=== PATIENT | male | born 1960 | race Caucasian/White ===

== ENCOUNTER → 2018-04-25 10:58 | Outpatient (CLI) | payer OTHER, SELFPAY ==
[2018-04-25 12:57] LABS: Anion Gap 6 (5-15); BUN 20 mg/dL (7-18); BUN/Creat Ratio 17.5 RATIO (10-20); Calcium,Total 8.9 mg/dL (8.5-10.1); Chloride 107 mmol/L (98-107); Creatinine, Serum 1.14 mg/dL (0.70-1.30); EST Glomerular Filtration Rate 70 mL/min (>60); Est Glom Filt Rate - Afr Amer 85 mL/min (>60); Glucose 118 mg/dL (74-106); PSA,Total - Annual Screen 0.37 ng/mL (0.00-4.00); Potassium 4.3 mmol/L (3.5-5.1); Sodium Level 139 mmol/L (136-145)
== END ==
PROVIDERS: Family Provider Family Medicine; PCP Family Medicine; Visit Provider Family Medicine
DX: I10 Essential (primary) hypertension (principal); Z12.5 Encounter for screening for malignant neoplasm of prostate
CPT/HCPCS: 36415; 80048; 84153; G0103

== ENCOUNTER → 2018-07-04 11:02 | Outpatient (CLI) | payer OTHER, SELFPAY ==
--- NOTE | 2018-07-04 12:07 | STRESSREP ---
Stress Test Report Treadmill EKG: Resting EKG: Normal sinus rhythm, normal axis, normal intervals, no evidence of previous myocardial infarction. Treadmill EKG: The patient exercise according to Soule[place]ane protocol for 9 minutes and 0 seconds achieving a maximum workload of 10.10 M ETS. Resting heart rate was initially 60 beats a minute and moe to maximum 157 bpm which represents 96% of the maximal age-predicted heart rate. Resting blood pressure was 130/84 and moe to maximum of 160/90. Test was terminated due to target heart rate achievement and dyspnea. During exercise the patient's heart rate increased as expected. Approximately 5 minutes 50 seconds into exercise patient developed [address] segment depression along the inferior and lateral leads. Patient had rare PVCs noted during exercise. Patient had a maximum of 1.5-[address] segment depression at peak exercise which resolved by 2 minutes and 1 second into recovery. No anginal symptoms noted. Conclusions abnormal adequate treadmill EKG. Positive for ischemia by EKG criteria. No anginal symptoms noted. Rare PVCs noted. Average exercise capacity for age. Appropriate blood pressure response to exercise. Test terminated due to dyspnea. Recommend clinical correlation or alternative mode of testing with imaging if clinically indicated. No complications.
--- NOTE | 2018-07-04 12:10 | STRESSREP_ITS ---
Stress Test Report Treadmill EKG: Resting EKG: Normal sinus rhythm, normal axis, normal intervals, no evidence of previous myocardial infarction. Treadmill EKG: The patient exercise according to Soule[place]ane protocol for 9 minutes and 0 seconds achieving a maximum workload of 10.10 M ETS. Resting heart rate was initially 60 beats a minute and moe to maximum 157 bpm which represents 96 % of the maximal age-predicted heart rate. Resting blood pressure was 130/84 and moe to maximum of 160/90. Test was terminated due to target heart rate achievement and dyspnea. During exercise the patient's heart rate increased as expected. Approximately 5 minutes 50 seconds into exercise patient developed [address] segment depression along the inferior and lateral leads. Patient had rare PVCs noted during exercise. Patient had a maximum of 1.5-[address] segment depression at peak exercise which resolved by 2 minutes and 1 second into recovery. No anginal symptoms noted. Conclusions abnormal adequate treadmill EKG. Positive for ischemia by EKG criteria. No anginal symptoms noted. Rare PVCs noted. Average exercise capacity for age. Appropriate blood pressure response to exercise. Test terminated due to dyspnea. Recommend clinical correlation or alternative mode of testing with imaging if clinically indicated. No complications.
== END ==
PROVIDERS: Family Provider Family Medicine; PCP Family Medicine; Visit Provider Family Medicine
DX: I10 Essential (primary) hypertension (principal)
CPT/HCPCS: 93017

== ENCOUNTER → 2018-07-09 16:18 | Outpatient (CLI) | payer OTHER, SELFPAY ==
--- NOTE | 2018-07-09 16:32 | RAD_ITS ---
STUDY: X-RAY CHEST REASON FOR EXAM: Male, 57 years old. Chest pain after abnormal stress chest TECHNIQUE: PA and lateral views of the chest. COMPARISON: None. FINDINGS: The lungs are clear and expanded. There is no demonstrated pleural abnormality. Normal size heart. Normal mediastinum and john. Normal visualized pulmonary arteries. Normal visualized aortic arch and descending thoracic aorta. Normal visualized thoracic spine. Normal visualized ribs, clavicles, and shoulders. There is no demonstrated abnormality of the visualized soft tissue structures of the upper abdomen. RAD/Chest PA and Lateral IMPRESSION: Normal x-ray examination of the chest. Electronically Signed: Holland Moore MD at 14:34 EDT , Service support ,
[2018-07-09 17:12] LABS: Absolute Neutrophil Count 7.1 X10^3/uL (2.0-7.7); Basophil# 0.03 X10^3/uL; Basophil% 0.3 % (0-1); Eosinophil# 0.09 X10^3/uL; Eosinophils% 0.9 % (0-5); Hematocrit 43.8 % (40-54); Hemoglobin 15.2 g/dl (13.0-16.5); Lymphocyte % 18.3 % (19-41); Mean Corp Hgb Conc 34.7 g/gl (32-36); Mean Corpuscular Hgb 29.7 pg (27.0-32.0); Mean Corpuscular Volume 85.7 fL (80-94); Mean Platelet Vol. 10.5 fl (6.2-12.0); Monocyte# 0.79 X10^3/uL; Neutrophil % 72.3 % (47-70); Platelet Count 199 K/mm3 (150-450); RBC Distribution Width CV 13.5 % (11.6-14.6); RBC Distribution Width SD 41.8 fl (35.1-43.9); Red Blood Count 5.11 M/mm3 (4.6-6.2); White Blood Count 9.8 K/mm3 (4.4-11.0)
[2018-07-09 17:13] LABS: Prothrombin Time (Protime)PT. 12.9 SECONDS (11.7-14.9)
[2018-07-09 17:46] LABS: POSITIVE COUNT NO; POSITIVE DIFFERENTIAL NO; POSITIVE MORPHOLOGY NO
[2018-07-09 17:48] LABS: Anion Gap 9 (5-15); BUN 19 mg/dL (7-18); BUN/Creat Ratio 18.3 RATIO (10-20); Calcium,Total 9.1 mg/dL (8.5-10.1); Chloride 105 mmol/L (98-107); Creatinine, Serum 1.04 mg/dL (0.70-1.30); EST Glomerular Filtration Rate 78 mL/min (>60); Est Glom Filt Rate - Afr Amer 94 mL/min (>60); Glucose 93 mg/dL (74-106); Potassium 4.1 mmol/L (3.5-5.1); Sodium Level 143 mmol/L (136-145)
== END ==
PROVIDERS: Family Provider Family Medicine; PCP Family Medicine; Visit Provider Internal Medicine Cardiovascular Disease
DX: R06.09 Other forms of dyspnea (principal); I10 Essential (primary) hypertension; R94.39 Abnormal result of other cardiovascular function study
CPT/HCPCS: 36415; 71046; 80048; 85025; 85610

== ENCOUNTER → 2018-07-18 10:42 | Outpatient (CLI) | payer OTHER, SELFPAY ==
--- NOTE | 2018-07-18 10:52 | ECHOCS_ITS ---
Reason For Study: Chest Pain Procedure This was a 2D Doppler, Color Flow transthoracic echocardiogram. Contrast injection was performed. Exam performed in department. Left Ventricle Normal size and thickness. The estimated ejection fraction is 65 %. Normal diastology for age. Septal motion consistent with IVCD. No regional wall motion abnormalities noted. Right Ventricle Normal size and thickness. Normal systolic function. Atria The left atrium is mildly enlarged. The right atrium is mildly enlarged. Normal atrial septum. Mitral Valve The mitral valve is structurally normal. No prolapse or stenosis seen. Tricuspid Valve Normal tricuspid valve. Trivial tricuspid valve insufficiency. Right ventricular systolic pressure estimated to be 26 mmHg. Aortic Valve Normal aortic valve. Trisinus/trileaflet aortic valve. Pulmonic Valve Normal pulmonic valve. Trivial pulmonic valve insufficiency. Great Vessels Normal aortic root. Normal arch. Normal inferior vena cava. Inferior vena cava collapse with sniff. Pericardium/Pleural No pericardial effusion. Medication 22 gauge I.V. with prn adaptor inserted into right arm. Diluted definity 3ml given slow IV push to enhance endocardial definition. MMode/2D Measurements & Calculations LVIDd: 5.0 cm IVSd: 1.1 cm Ao root diam: 4.0 cm LVIDs: 3.5 cm LVPWd: 1.4 cm RVDd: 3.9 cm FS: 29.9 % LAV(MOD-bp): 83.6 ml LVAd ap4: 38.0 cm2 SV(MOD-sp4): 82.4 ml LAV(MOD-bp) Indexed: 38.5 ml/m2 EDV(MOD-sp4): 133.1 ml LAV(MOD-sp2): 78.1 ml EDV(sp4-el): 133.2 ml LAV(MOD-sp4): 85.8 ml LVAs ap4: 20.2 cm2 ESV(MOD-sp4): 50.7 ml ESV(sp4-el): 50.6 ml EF(MOD-sp4): 61.9 % EF(sp4-el): 62.0 % SV(sp4-el): 82.6 ml LA A4 area: 25.0 cm2 RA A4 area: 21.5 cm2 Time Measurements MV dec time: 0.19 sec Doppler Measurements & Calculations MV E max cayetano: 72.9 cm/sec Lat Peak E' Cayetano: 11.0 cm/sec Med Peak E' Cayetano: 11.9 cm/sec MV A max cayetano: 52.1 cm/sec E/E' lat: 6.6 E/E' med: 6.1 MV E/A: 1.4 MV V2 max: 83.5 cm/sec MV P1/2t max cayetano: 85.4 cm/sec Ao V2 max: 136.8 cm/sec MV max P.8 mmHg MV P1/2t: 52.9 msec Ao max P.5 mmHg MV V2 mean: 40.6 cm/sec MV dec slope: 473.1 cm/sec2 Ao V2 mean: 88.6 cm/sec MV mean P.81 mmHg MVA(P1/2t): 4.2 cm2 Ao mean P.6 mmHg MV V2 VTI: 20.7 cm Ao V2 VTI: 26.1 cm LV V1 max: 110.0 cm/sec PA V2 max: 96.3 cm/sec TR max cayetano: 226.6 cm/sec LV V1 max P.8 mmHg TR max P.5 mmHg LV V1 mean P.2 mmHg LV V1 mean: 68.3 cm/sec LV V1 VTI: 24.2 cm Interpretation Summary The estimated ejection fraction is 65 %. Normal diastology for age. The left atrium is mildly enlarged. Trivial tricuspid valve insufficiency. Right ventricular systolic pressure estimated to be 26 mmHg. The study was technically difficult. There is no comparison study available. Contrast injection was performed. Ordering Physician: Tulio Garcia Referring Physician: Jos Uriostegui Performed By: Keaton Flowers RCS
== END ==
PROVIDERS: Family Provider Family Medicine; PCP Family Medicine; Referring Provider Internal Medicine Cardiovascular Disease; Visit Provider Internal Medicine Cardiovascular Disease
DX: R07.9 Chest pain, unspecified (principal); R06.09 Other forms of dyspnea; R94.39 Abnormal result of other cardiovascular function study
CPT/HCPCS: 93306; Q9957; A4216; C8929

== ENCOUNTER 2018-07-19 06:56 | Day surgery (SDC) | payer OTHER, SELFPAY ==
--- NOTE | 2018-07-19 09:15 | CL.D_ITS ---
Patient Name: TAMMY MAYO Study Date: 07/19/2018 Performing: Tulio Garcia MD Ht: inches cm : 1960 Wt: 246.92 lbs 112 kg Age: 57 Gender: male BSA: PROCEDURE(S) PERFORMED PR22-VLX/COR/LV CLINICAL PROFILE AND INDICATIONS Indications: Suspected CAD Heart Failure: None Stress/Imaging Standard Exercise Stress Test: Yes Result: Positive Low Risk Angina Classification Anginal Classification w/in 2 Weeks: CCS III CAD Presentations: Unstable angina. 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 RECOMMENDATIONS CTA of coronary arteries to assess anomalous origin of left main coronary artery. Manual sheath removal D/c plavix, cont baby asa. Pt's chest pain has resolved with anti-anxiety meds. DESCRIPTION OF PROCEDURE The patient arrived to the procedure lab. The risks and benefits of the procedure as well as a full d escription of our services here and current unavailability of surgical backup were fully explained to the patient and/or their significant other prior to the catheterization. The Timeout was completed, verifying the correct patient and procedure. The patient's procedural site was prepped and draped in the usual fashion. Local anesthetic was given subcutaneously to right groin region with Lidocaine 2%. Using a modified Seldinger technique, arterial access was obtained via the right femoral artery, a 4 Fr sheath was inserted Right Coronary Artery selective angiography was then performed in multiple vi ews using a 4 Fr. 3DRC catheter. Left Coronary Artery selective angiography was performed in multiple views using a 4 Fr. JL6 catheter. Left Ventriculography was performed in BROOKE projection using a 4 Fr . Pigtail catheter. LV to AO pullback pressures were then recorded.The arterial sheath was pulled and manual compression applied until hemostasis is achieved. 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, possibly traversing b/w pulmonary artery and aorta., Angiographically normal LEFT ANTERIOR DECENDING ARTERY: Angiographically normal CIRCUMFLEX ARTERY: Angiographically normal RIGHT CORONARY ARTERY: Angiographically normal RT PDA: Proximal - Angiographically normal COMPLICATIONS No Complications PROCEDURE MEDICATIONS Versed 1 mg IV Oxygen: 2 L/min via nasal cannula SUMMARY OF HEMODYNAMIC DATA Time AIR REST ECG 07:14:22 AO 138/75 (102) SA 08:42:53 LV 180/-26, 13 08:58:14 LV 169/-27, 16 08:58:20 LVp 164/-24, 10 08:58:29 AOp 163/81 (116) 08:58:34 Signed By Tulio Garcia MD On 07/19/2018 09:15:09 Tulio Garcia MD
--- NOTE | 2018-08-30 14:50 | PCM.HP.BLA ---
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 Garcia @ [facility] (4) Congenital heart anomaly Status: Chronic (5) Hypertension Status: Chronic History and Physical Date of Admission: 07/19/18 Mr. Cam is a very pleasant 58-year-old gentleman who presented with new onset substernal chest pain which originally thought to be anxiety and he was prescribed antianxiety medication. When this did not improve his chest pain he underwent a stress test which was abnormal for ischemia. 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 Patient was then referred for a CT scan of his great vessels to determine if he requires translocation of his left main or bypass surgery. The risks/benefits of the procedure were thoroughly explained to the patient with specific attention to lack of on-site surgical backup, and he agreed to proceed. Physical exam demonstrated clear lungs bilaterally, regular rate and rhythm, normal S1/S2, no S3 or S4. He had no murmurs. He had no edema. EKG showed normal sinus rhythm, no previous myocardial infarction, no acute changes. Assessment/plan: 1. 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 The patient will be referred for a CT scan of his chest with IV contrast dye to evaluate his coronary anatomy and determine whether he requires translocation of his left main from the right coronary cusp to the left coronary cusp or bypass surgery. If so, patient referred to [facility] for surgical correction of same. All questions answered. Code Visit Office Visits / Consults: [id number] OV L3 Est
--- NOTE | 2018-08-30 14:54 | HP.PCM_ITS ---
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 Garcia @ [facility] (4) Congenital heart anomaly Status: Chronic (5) Hypertension Status: Chronic History and Physical Date of Admission: 07/19/18 Mr. Cam is a very pleasant 58-year-old gentleman who presented with new onset substernal chest pain which originally thought to be anxiety and he was prescribed antianxiety medication. When this did not improve his chest pain he underwent a stress test which was abnormal for ischemia. 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 Patient was then referred for a CT scan of his great vessels to determine if he requires translocation of his left main or bypass surgery. The risks/benefits of the procedure were thoroughly explained to the patient with specific attention to lack of on-site surgical backup, and he agreed to proceed. Physical exam demonstrated clear lungs bilaterally, regular rate and rhythm, normal S1/S2, no S3 or S4. He had no murmurs. He had no edema. EKG showed normal sinus rhythm, no previous myocardial infarction, no acute changes. Assessment/plan: 1. 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 The patient will be referred for a CT scan of his chest with IV contrast dye to evaluate his coronary anatomy and determine whether he requires translocation of his left main from the right coronary cusp to the left coronary cusp or bypass surgery. If so, patient referred to [facility] for surgical correction of same. All questions answered. Code Visit Office Visits / Consults: [id number] OV L3 Est
== END 2018-07-19 13:37 | disposition home or self-care (01) ==
LOC: CLSP 06:57
PROVIDERS: Family Provider Family Medicine; PCP Family Medicine; Referring Provider Internal Medicine Cardiovascular Disease; Visit Provider Internal Medicine Cardiovascular Disease
DX: I20.0 Unstable angina (principal); R06.09 Other forms of dyspnea; Q24.9 Congenital malformation of heart, unspecified; Q24.5 Malformation of coronary vessels; I10 Essential (primary) hypertension; R94.39 Abnormal result of other cardiovascular function study; Z79.02 Long term (current) use of antithrombotics/antiplatelets; Z79.82 Long term (current) use of aspirin; Z79.899 Other long term (current) drug therapy
CPT/HCPCS: 93458; 99152; 99153; J7040; C1769; C1894; Q9967

== ENCOUNTER → 2018-08-05 14:35 | Outpatient (CLI) | payer OTHER, SELFPAY ==
--- NOTE | 2018-08-05 14:43 | CT_ITS ---
STUDY: CT CHEST WITHOUT CONTRAST REASON FOR EXAM: Male, 58 years old. 2 month history of chest pain. Coronary artery assessment. This is a normal report in the lungs. RADIATION DOSAGE (If Supplied By Facility): CTDIvol = ( 22.77 ) mGy, DLP = ( 2279.70 ) mGycm TECHNIQUE: Transaxial imaging was performed without the administration of intravenous contrast material. Individualized dose optimization techniques were used for this CT. COMPARISON: None. FINDINGS: The lungs are normal. There is no demonstrated pleural abnormality. Normal heart and pericardium. There are multiple small lymph nodes within the mediastinum, which are normal in size and morphology most compatible with reactive lymph hyperplasia. Normal hilar regions. Normal unenhanced pulmonary arteries. There is atherosclerotic calcification of the aortic arch with tortuosity and elongation of the aortic arch and descending thoracic aorta. There are multi-level degenerative changes of the thoracic spine. There is no demonstrated abnormality of the visualized upper abdomen. CT/Limited Chest CT w/CCTA IMPRESSION: No acute abnormality is seen. Electronically Signed: Harvinder Abreu MD at 15:47 EDT Tel [phone], Service support ,
[2018-08-05 14:53] VITALS: BP 138/84; PULSE 56; RESP 16; O2SAT 100; BMI 29.2
--- NOTE | 2018-08-14 10:17 | CA.SCORE ---
Calcium Scoring Date of Study:: 08/05/18 Coronary Calcium Scoring: Coronary calcium score of 0% Conclusion: High-resolution computed tomography was performed on 08/05/18 with particular attention paid to the coronary arteries. Patient has a calcium score of 0%. 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 There were no significant lesions or stenoses seen in the coronary arteries. The left main, LAD, left circumflex and right coronary artery vessels were imaged and appear to have no significant stenosis and 0% calcium. There was motion artifact noted during image acquisition. No complications. Impression: Impressions: 1. Coronary calcium score Agatson score of 0% 2. 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 3. No evidence of significant coronary artery disease seen by coronary CTA. 4. Significant motion artifact seen in the midportion of the right coronary artery. 5. Patient appeared to have adequate IV contrast deposition in the ascending aorta and coronary arteries. 6. No complications.
--- NOTE | 2018-08-14 10:20 | CCTA.WCONT ---
CCTA w/Cont Coronary Arteries Date of Study:: 08/05/18 Anomalous left main traversing between the aorta and pulmonary artery Consent:: Yes Procedure: Patient was brought to the CT scanner in the fasting state and with adequate beta-cordelia therapy. Patient received gated image acquisition with appropriate IV contrast dye infusion. Patient had adequate IV contrast dye opacification of the ascending aorta and coronary arteries. There was motion artifact noted specifically in the mid right coronary artery. No complications. LEFT MAIN CORONARY ARTERY: Anomalous left main coronary artery comes off the right coronary cusp and traverses between the aorta and the pulmonary artery. It then bifurcates into an LAD and left circumflex artery. No significant stenosis seen in the left main. [] LEFT ANTERIOR DESCENDING CORONARY ARTERY: Within normal limits. No evidence of calcium or coronary stenosis. [] LEFT CIRCUMFLEX CORONARY ARTERY: Within normal limits. No evidence of calcium or coronary stenosis. [] RIGHT CORONARY ARTERY: Comes off the right coronary cusp, and is a dominant vessel which traverses to the inferior portion of the heart and bifurcates into a PDA and terminates into a large posterior lateral branch. There was a motion artifact seen in the mid right coronary artery which did not appear to affect opacification or evaluation. No significant stenosis and no calcium noted. [] THORACIC AORTA: Within normal limits. [] PULMONARY ARTERY: Mild opacification of the pulmonary artery and appears to be normal size. [] LEFT ATRIUM/APPENDAGE: Within normal limits. [] MITRAL VALVE: Appears structurally normal. [] AORTIC VALVE: Trileaflet and appears normal. [] LEFT VENTRICLE: Normal LV size and thickness. [] CORONARY CALCIUM SCORE: Agatson score of 0%. []
== END ==
PROVIDERS: Family Provider Family Medicine; PCP Family Medicine; Referring Provider Internal Medicine Cardiovascular Disease; Visit Provider Internal Medicine Cardiovascular Disease
DX: Q24.5 Malformation of coronary vessels (principal); Q24.9 Congenital malformation of heart, unspecified; R07.9 Chest pain, unspecified; I10 Essential (primary) hypertension; R06.09 Other forms of dyspnea; R42 Dizziness and giddiness; R94.39 Abnormal result of other cardiovascular function study; Z98.890 Other specified postprocedural states
CPT/HCPCS: 75571; 75574; 76380; Q9967

== ENCOUNTER → 2019-04-30 10:06 | Outpatient (CLI) | payer OTHER, SELFPAY ==
--- NOTE | 2019-04-30 10:17 | MRI_ITS ---
STUDY: MRI RIGHT ANKLE WITHOUT CONTRAST REASON FOR EXAM: Male, 58 years old. Stress fracture. Heel pain. TECHNIQUE: Standardized fat and water weighted pulse sequences were obtained in all 3 orthogonal planes. COMPARISON: None. FINDINGS: Acute incomplete calcaneal stress fracture with extensive bone marrow edema/contusion (sagittal image 10 series 3). No dislocation. No cortical destruction. Mild Achilles tendinosis with small spur. Acute on chronic plantar fascial thickening with low-grade partial thickness central cord (coronal image 15 series 3). Small plantar spur. Normal muscles of the midfoot/hindfoot. Tibiotalar articular cartilage preserved. Normal subtalar articular cartilage. Normal talonavicular articular cartilage. Mild calcaneocuboid arthrosis. Normal navicular cuneiform articulations. Mild tarsometatarsal joint arthrosis at the first digit. Trace tibiotalar/subtalar joint effusion. Mild soft tissue swelling predominating at the heel. No solid, cystic or lipomatous soft tissue lesions. Normal peroneal tendons. Mild posterior tibialis tenosynovitis. Remainder of the flexor tendons unremarkable. Moderate extensor digitorum tenosynovitis (axial image 5 series 5). Mild extensor tibialis anterior tenosynovitis (axial image 2 series 5). Normal syndesmotic ligaments. Mild posterior talofibular ligament sprain. Normal anterior talofibular ligament. Normal deltoid ligament. Normal spring ligament. Normal sinus Tarsi/subtalar ligaments. Normal Lisfranc ligament. MRI/Lower Ext Joint Only (Routine) IMPRESSION: Acute incomplete calcaneal fracture with extensive bone marrow edema/contusion Acute on chronic plantar fasciitis with plantar spur and low-grade partial thickness central cord tear Acute posterior talofibular ligament sprain without tear Mild Achilles tendinosis with small spur Mild PTT tenosynovitis without tear Mild/moderate extensor tenosynovitis predominating at the extensor digitorum tendons Mild osteoarthritic features with small joint effusions and soft tissue swelling Electronically Signed: David Franks DO at 12:08 EDT Tel , Service support ,
== END ==
PROVIDERS: Family Provider Family Medicine; PCP Family Medicine; Referring Provider Podiatrist; Visit Provider Podiatrist
DX: M84.374A Stress fracture, right foot, initial encounter for fracture (principal); X58.XXXA Exposure to other specified factors, initial encounter; Y93.9 Activity, unspecified; Y92.9 Unspecified place or not applicable; Y99.9 Unspecified external cause status
CPT/HCPCS: 73721

== ENCOUNTER → 2020-05-05 11:39 | Outpatient (CLI) | payer BC, SELFPAY ==
[2018-08-05 14:53] VITALS: BMI 29.2
[2020-05-05 16:48] LABS: ALB/GLOB Ratio 1.1 RATIO (0.9-2.4); AST(SGOT) 20 U/L (15-37); Alanine Aminotransfer ALT/SGPT 35 U/L (16-61); Albumin, Serum 3.7 g/dL (3.2-5.0); Alkaline Phosphatase 59 U/L (45-117); Anion Gap 3 (5-15); BUN 19 mg/dL (7-18); Calcium,Total 8.9 mg/dL (8.5-10.1); Chloride 111 mmol/L (98-107); Cholesterol 188 mg/dL (200); EST Glomerular Filtration Rate 81 mL/min (>60); Est Glom Filt Rate - Afr Amer 98 mL/min (>60); Globulin 3.3 g/dL (2.2-4.2); Glucose 113 mg/dL (74-106); High Density Lipoprotein 47 mg/dL; PSA,Total - Annual Screen 0.42 ng/mL (0.00-4.00); Potassium 4.3 mmol/L (3.5-5.1); Sodium Level 140 mmol/L (136-145); Triglycerides 80 mg/dL; Very Low Density Lipoprotein 16 mg/dL (5-40)
== END ==
PROVIDERS: PCP Family Medicine; Visit Provider Family Medicine
DX: I10 Essential (primary) hypertension (principal); Z12.5 Encounter for screening for malignant neoplasm of prostate
CPT/HCPCS: 36415; 80053; 80061; 84153; G0103

== ENCOUNTER → 2020-10-07 | Outpatient (CLI) | payer BC, SELFPAY ==
[2018-08-05 14:53] VITALS: BMI 29.2
== END | disposition home or self-care (01) ==
LOC: LABSPEC 10:53
PROVIDERS: PCP Family Medicine; Referring Provider Family Medicine; Visit Provider Family Medicine
DX: Z20.828 Contact with and (suspected) exposure to other viral communicable diseases (principal); R42 Dizziness and giddiness
CPT/HCPCS: 87635; U0003

== ENCOUNTER 2021-03-01 12:30 | Outpatient (RCR) | payer BC, SELFPAY ==
--- NOTE | 2021-02-24 13:58 | HP.PTEVAL ---
Patient's Visit Information TAMMY MAYO is a 60 year old M referred to Physical Therapy by Dr. Denton Coyle DO with a diagnosis of L FIBULAR FX. Date of Evaluation: 02/24/21 Physical Therapist: Calista Bledsoe PT, Cert MDT - Visit Plan Frequency: 2-3x /Week Duration: 4-6 Weeks Plan: LLE ROM, STRETCHING AND STRENGTHEING WBAT. GAIT TRAINING. EDEMA REDUCTION (NO VASO). HEP INST. 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 Disability: NO. Present symptoms: HAVING SOME L MEDIAL KNEE PAIN. SOME LEFT LEG AND ANKLE PAIN AND SORENESS. L MEDIAL KNEE PAIN WALKING. HAVING A LOT OF LLE SWELLING. STATES HE SAW HIS PCP LAST WEEK AND HE SAID THE SWELLING IS TO BE EXPECTED. PATIENT REPORTS THE SWELLING IS ABOUT THE SAME NOW IT WAS WHEN DR. COYLE TOOK HIS CAST OFF AND IT DOESN'T SEEM TO BE GETTING BETTER OR WORSE. Present since: December OR 2020. Pain Scale: WORST 4/10, LEAST 1/10. Currently: 10/31. Commenced as a result of: DOING SOME SIGHT SEEING AND HOPING ON ROCKS AND WHEN JUMPED OFF THE LAST ROCK HIT A TREE ROOT AND BROKE ANKLE. Symptoms at onset: ANKLE PAIN. THOUGH IT WAS JUST A SPRAIN. CONTINUED TO WALK. NEXT DAY DX'D WITH FX. Worse: WALKING, PROLONGED STANDING. TRYING TO GO EASY ON IT. Better: REST. ELEVATING LEG, ICE. Disturbed sleep: NO. Previous history/Previous treatment: FX DIAGNOSED BY DR. COYLE. NO SURGERY. INITIALLY WAS PUT IN A SPLINT X 1 WEEK UNTIL SWELLING WENT DOWN ENOUGH TO GET CAST ON FOR 6 WEEKS - NWB. THEN WENT INTO WALKING BOOT X 2 WEEKS. OUT OF BOOT YESTERDAY. X-RAYS TWO WEEKS AGO LOOKED GOOD PER PATIENT REPORT. NO PRIOR L LEG INJURIES. Gait: TRYING TO GET USE TO WALKING AGAIN. THE KNEE IS WHAT HURTS WHEN HE WALKS BUT IT SEEMS TO GET BETTER HE WALKS A BIT. THE KNEE STARTED HURTING WHEN STARTED WEIGHT BEARING IN WALKING BOOT. NO PRIOR LEFT KNEE INJURIES. STATES HIS LEFT KNEE HAS NOT BEEN EXAMINED BY ANYONE. Accidents: NO. Unexplained weight loss: NO. PMH: HTN, ANXIETY. 2 HERNIA REPAIRS. OUT OF WALKING BOOT FOR FIRST TIME YESTERDAY AND WORKED. WENT BACK TO WORK ABOUT 2 WEEKS AGO WHEN IN WALKING BOOT. - Objective Observations: THIS PATIENT ABMULATES INDEP'LY INTO PT WITH A MILD LIMP ON THE RIGHT LE AND SIGNIFIANCT LLE EDEMA - SEE MEASUREMENTS BELOW. PATIENT IS WEARING REGULAR SHOES HARVINDER. Motor deficit: R LE 5/5. L LE: HIP 4/5, KNEE 4/5, ANKLE 3-/5. Sensory deficit: L LATERAL LEG DECREASED LIGHT TOUCH. ROM deficit: MILD HARVINDER LE HIP FLEXOR, HS AND GASTROC SOLEUS COMPLEX TIGHTNESS BUT SYMMETRICAL EXCEPT FOR 25% LEFT ANKLE ROM MVMT LOSS COMPARED TO RIGHT. FULL L KNEE EXT TO 130 DEG FLEXION IN SUPINE WITH A HEEL SLIDE. NO L KNEE PAIN WITH TESTING. Lumbar mvmt loss: flex - NIL. ext - MOD. R SG - MOD. L SG - MOD. PATIENT DENIES LBP WITH LUMBAR ROM TESTING. Core strength: POOR. Palpation: GOOD LEFT KNEE PATELLAR MOBILITY AND NO PAIN WITH PALPAITON. CIRCUMFERENCE MEASUREMENTS LLE: MID PATELLA - 45.5 CM. 6 ABOVE - 56 CM. 6 BELOW - 49 CM. 12 BELOW - 38.5 CM. MALLEOLI - 37 CM. TREATMENT: HOME INSTRUCTIONS FOR LLE MASSAGE TO DECREASE SWELLING. HEP INST: 4 WAY SLR'S, HEEL SLIDES, GLUT SETS, QS'S, AP'S, ANKLE ALPHABET AND TOE WIGGLES. STANDING TRUNK AROM: GENTLE SB AND ROTATION. STANDING HIP ABD. INSTRUCTED PATIENT IN MONITORING LE FOR SIGNS OF BLOOD CLOT AND HE REPORTS ALREADY BEING ADVISED OF THIS. ALSO RECOMMENDED OVER THE COUNTER KNEE HIGH COMPRESSION GARMET LLE. PATIENT DEMONSTRATED AND/OR COMMUNICATED A GOOD UNDERSTANDING OF ALL INSTRUCTIONS AFTER GIVEN. - Goals Goal 1:: DECREASE LLE PAIN AND EDEMA Goal Time Frame: 4-6 Weeks Goal 2:: INCREASE FUNCTIONAL ROM OF LLE Goal Time Frame: 4-6 Weeks Goal 3:: INCREASE FUNCTIONAL STRENGTH OF LLE Goal Time Frame: 4-6 Weeks Goal 4:: PATIENT WILL BE INDEP WITH A HEP FOR CONTINUED IMRPOVEMENT ONCE FORMAL PHYSICAL THERAPY CONCLUDES. Goal Time Frame: 4-6 Weeks - Anticipated Interventions Patient/Client Instruction: Educate patient on: Condition, Plan of Care, Risk Factors For the Purpose of:: To improve self management Therapeutic Exercise to Include: Strength training, Flexibilty training, Gait and locomotor training, Neuromotor development, Passive ROM, Active ROM For the Purpose of:: To decrease pain, To decrease swelling/inflammation, To improve muscle performance and motor function, To increase tolerance to activity/condition/position, To improve ability of physical actions for home/community/work/leisure, To improve gait and locomotor functions Thank you for the opportunity to evaluate your patient. For Medicare and Medicare HMO plans, please review the plan of care and approve it. It will need to be FAXED BACK to us at [phone] for Medicare purposes. For Medicare only, by signing this I certify the plan of care. Please let me know if there are questions or concerns regarding this plan of care. Physician Signature: Date:
--- NOTE | 2021-08-30 13:22 | HP.PTDCNRP_ITS ---
TAMMY MAYO was seen in my office for initial evaluation on 02/24/21. The following Plan of Care was established for this patient: Initial Frequency: 2-3x /Week Initial Duration: 4-6 Weeks Patient/Client Instruction: Educate patient on: Condition, Plan of Care, Risk Factors For the Purpose of:: To improve self management Therapeutic Exercise to Include: Strength training, Flexibilty training, Gait and locomotor training, Neuromotor development, Passive ROM, Active ROM For the Purpose of:: To decrease pain, To decrease swelling/inflammation, To improve muscle performance and motor function, To increase tolerance to activ ity/condition/position, To improve ability of physical actions for home/community/work/leisure, To improve gait and locomotor functions This patient was last seen in our office 03/01/21. Pertinent comments regarding their Physical therapy will appear below: This patient has not returned to Physical Therapy and is appropriate to return to MD for further follow-up as needed. At this point I will be discontinuing this patient from physical therapy. I would be happy to see this patient again in the future if found appropriate by the physician. Thank you! Calista Bledsoe, PT, Cert MDT Balance/Gait/Functional tests - Balance/Special Test Scores Lower Extremity Functional Score: 55
== END 2021-03-01 19:00 | disposition home or self-care (01) ==
LOC: PT 12:30
PROVIDERS: PCP Family Medicine; Referring Provider Orthopaedic Surgery; Visit Provider Orthopaedic Surgery
DX: S82.832D Other fracture of upper and lower end of left fibula, subsequent encounter for closed fracture with routine healing (principal); X58.XXXD Exposure to other specified factors, subsequent encounter
CPT/HCPCS: 97110; 97162; 97530

== ENCOUNTER → 2021-05-24 17:14 | Outpatient (CLI) | payer BC, SELFPAY ==
--- NOTE | 2021-05-24 17:29 | RAD_ITS ---
INDICATION: right knee pain EXAMINATION/TECHNIQUE: X-RAY - RIGHT XR Knee Complete 4 Views or More 4 VIEWS COMPARISON: None. FINDINGS: Studies of the right knee in 4 projections shows no evidence of fracture, dislocation, or bony destruction. RAD/Knee 4 or More Views IMPRESSION: Normal right knee Electronically Signed: Julián Singer DO at 11:03 EDT Tel , Service support ,
== END ==
PROVIDERS: PCP Family Medicine; Referring Provider Family Medicine; Visit Provider Family Medicine
DX: M25.561 Pain in right knee (principal)
CPT/HCPCS: 73564

== ENCOUNTER → 2021-06-18 07:10 | Outpatient (CLI) | payer BC, SELFPAY ==
--- NOTE | 2021-06-18 07:45 | MRI_ITS ---
STUDY: MRI RIGHT KNEE REASON FOR EXAM: Male, 60 years old. Pain TECHNIQUE: Standardized fat and water weighted pulse sequences were obtained in all 3 orthogonal planes. COMPARISON: None. FINDINGS: There is tearing of the posterior horn and body of the medial meniscus. Normal hyaline cartilage of the medial femorotibial compartment. Normal medial femoral condyle and tibial plateau. Normal medial collateral ligamentous complex (MCL). Normal distal semimembranosus, gracilis and semitendinosus tendons. Normal lateral meniscus. Normal hyaline cartilage of the lateral femorotibial compartment. Normal lateral femoral condyle and tibial plateau. Normal proximal tibiofibular articulation. Normal lateral collateral (fibular) ligament. Normal popliteus tendon. Normal biceps femoris tendon. Normal anterior cruciate ligament (ACL). Normal posterior cruciate ligament (PCL). Normal congruent patellofemoral articulation. There is intermediate grade cartilage degeneration at the patellar ridge. Normal medial and lateral patellar retinaculum. Normal quadriceps tendon. Normal patellar tendon. Normal Hoffa''s fat pad. There is no joint effusion. There is a small medial para-Meniscal cyst. The soft tissues are unremarkable. The otherwise visualized osseous structures are unremarkable. MRI/Lower Ext Joint Only (Routine) IMPRESSION: Tearing of the medial meniscus. Small para meniscal cyst. Electronically Signed: Tulio Rey MD at 11:24 EDT Tel , Service support ,
== END ==
PROVIDERS: PCP Family Medicine; Referring Provider Family Medicine; Visit Provider Family Medicine
DX: M25.561 Pain in right knee (principal); S83.241A Other tear of medial meniscus, current injury, right knee, initial encounter; X58.XXXA Exposure to other specified factors, initial encounter
CPT/HCPCS: 73721

== ENCOUNTER → 2021-07-26 09:32 | Outpatient (CLI) | payer BC, SELFPAY ==
[2021-07-26 12:03] LABS: Hematocrit 43.4 % (40-54); Hemoglobin 14.6 g/dL (13.0-16.5); Mean Corp Hgb Conc 33.6 g/dL (32-36); Mean Corpuscular Hgb 29.7 pg (27.0-32.0); Mean Corpuscular Volume 88.2 fL (80-94); Mean Platelet Vol. 10.7 fl (6.2-12.0); Platelet Count 202 K/mm3 (150-450); RBC Distribution Width CV 13.5 % (11.6-14.6); RBC Distribution Width SD 43.8 fl (35.1-43.9); Red Blood Count 4.92 M/mm3 (4.6-6.2); White Blood Count 7.9 K/mm3 (4.4-11.0)
[2021-07-26 12:13] LABS: Prothrombin Time (Protime)PT. 12.9 SECONDS (11.7-14.9)
[2021-07-26 12:14] LABS: Partial Thromboplast Time 27.2 Seconds (24.1-36.2)
[2021-07-26 12:25] LABS: Anion Gap 7 (5-15); BUN 19 mg/dL (7-18); BUN/Creat Ratio 18.1 RATIO (10-20); Calcium,Total 8.7 mg/dL (8.5-10.1); Chloride 103 mmol/L (98-107); Creatinine, Serum 1.05 mg/dL (0.70-1.30); EST Glomerular Filtration Rate 76 mL/min (>60); Est Glom Filt Rate - Afr Amer 92 mL/min (>60); Glucose 113 mg/dL (74-106); Potassium 4.3 mmol/L (3.5-5.1); Sodium Level 137 mmol/L (136-145)
== END ==
PROVIDERS: PCP Family Medicine; Referring Provider Family Medicine; Visit Provider Family Medicine
DX: Z01.818 Encounter for other preprocedural examination (principal)
CPT/HCPCS: 36415; 80048; 85027; 85610; 85730

== ENCOUNTER → 2022-08-15 | Outpatient (CLI) | payer BC, SELFPAY ==
[2022-08-15 10:47] LABS: ALB/GLOB Ratio 1.1 RATIO (0.9-2.4); AST(SGOT) 20 U/L (15-37); Alanine Aminotransfer ALT/SGPT 41 U/L (16-61); Albumin, Serum 3.5 g/dL (3.2-5.0); Alkaline Phosphatase 60 U/L (45-117); Anion Gap 2 (5-15); BUN 19 mg/dL (7-18); BUN/Creat Ratio 17.6 RATIO (10-20); Calcium,Total 9.2 mg/dL (8.5-10.1); Chloride 113 mmol/L (98-107); Creatinine, Serum 1.08 mg/dL (0.70-1.30); EST Glomerular Filtration Rate 74 mL/min (>60); Est Glom Filt Rate - Afr Amer 89 mL/min (>60); Globulin 3.2 g/dL (2.2-4.2); Glucose 120 mg/dL (74-106); PSA,Total - Annual Screen 0.48 ng/mL (0.00-4.00); Potassium 4.8 mmol/L (3.5-5.1); Protein, Total 6.7 g/dL (6.4-8.2); Sodium Level 142 mmol/L (136-145)
== END | disposition home or self-care (01) ==
LOC: MFPLAB 08:53
PROVIDERS: PCP Family Medicine; Referring Provider Family Medicine; Visit Provider Family Medicine
DX: Z12.5 Encounter for screening for malignant neoplasm of prostate (principal); R73.01 Impaired fasting glucose
CPT/HCPCS: 36415; 80053; 84153; G0103

== ENCOUNTER → 2023-10-05 | Outpatient (CLI) | payer BC, SELFPAY ==
[2023-10-05 10:45] LABS: Anion Gap 5 (5-15); BUN 23 mg/dL (7-18); BUN/Creat Ratio 23.7 RATIO (10-20); Calcium,Total 8.8 mg/dL (8.5-10.1); Chloride 110 mmol/L (98-107); Cholesterol 191 mg/dL (200); Creatinine, Serum 0.97 mg/dL (0.70-1.30); EST Glomerular Filtration Rate 83 mL/min (>60); Est Glom Filt Rate - Afr Amer 100 mL/min (>60); Glucose 107 mg/dL (74-106); High Density Lipoprotein 54 mg/dL; PSA,Total - Annual Screen 0.37 ng/mL (0.00-4.00); Potassium 4.2 mmol/L (3.5-5.1); Sodium Level 143 mmol/L (136-145); Triglycerides 107 mg/dL; Very Low Density Lipoprotein 21 mg/dL (5-40)
== END | disposition home or self-care (01) ==
PROVIDERS: PCP Family Medicine; Referring Provider Family Medicine; Visit Provider Family Medicine
DX: I10 Essential (primary) hypertension (principal); Z12.5 Encounter for screening for malignant neoplasm of prostate
CPT/HCPCS: 36415; 80048; 80061; 84153; G0103

== ENCOUNTER → 2025-02-24 | Outpatient (CLI) | payer BC, SELFPAY ==
[2025-02-24 11:17] LABS: ALB/GLOB Ratio 1.7 RATIO (0.9-2.4); AST(SGOT) 21 U/L (<=37); Alanine Aminotransfer ALT/SGPT 22 U/L (<=46); Albumin, Serum 3.9 g/dL (3.4-4.8); Alkaline Phosphatase 66 U/L (40-129); Anion Gap 8 (5-15); BUN 20 mg/dL (4-19); BUN/Creat Ratio 20.5 RATIO (10-20); Calcium,Total 8.9 mg/dL (7.6-11.0); Carbon Dioxide 26.4 mmol/L (21.0-32.0); Chloride 108 mmol/L (98-108); Cholesterol 182 mg/dL (<=200); EST Glomerular Filtration Rate 84 (>60); Globulin 2.3 g/dL (2.2-4.2); Glucose 106 mg/dL (70-99); High Density Lipoprotein 45 mg/dL; Low Density Lipoprotein Calc. 119 mg/dL; PSA,Total - Annual Screen 1.12 ng/mL (0.02-4.00); Potassium 4.1 mmol/L (3.3-5.1); Protein, Total 6.2 g/dL (5.9-8.4); Sodium Level 142 mmol/L (133-145); Total Bilirubin 0.34 mg/dL (0.00-1.30); Triglycerides 92 mg/dL; Very Low Density Lipoprotein 18 mg/dL (5-40); cholesterol:hdl ratio screen 4.04
== END | disposition home or self-care (01) ==
LOC: MTLAB 07:04
PROVIDERS: PCP Family Medicine; Referring Provider Family Medicine; Visit Provider Family Medicine
DX: R73.01 Impaired fasting glucose (principal); Z12.5 Encounter for screening for malignant neoplasm of prostate
CPT/HCPCS: 36415; 80053; 80061; 84153; G0103

== ENCOUNTER → 2025-05-19 | Outpatient (CLI) | payer BC, SELFPAY ==
--- NOTE | 2025-05-19 11:29 | RAD_ITS ---
PROCEDURE: CERV SPINE 4 OR 5 VIEWS 05/19/2025 REASON FOR EXAM: NECK PAIN AND PARESTHESIAS. TECHNIQUE: CERV SPINE 4 OR 5 VIEWS COMPARISON: None. FINDINGS: BONES: No fracture or focal osseous lesion. Alignment is anatomic in the sagittal projection and is maintained throughout flexion and extension. Straightening of the normal cervical lordosis. DISC/DEGENERATIVE CHANGES: Disc space narrowing at C5-C6 and C6-C7. Small vertebral endplate osteophytes at multiple levels. Bony narrowing of the C3-C4 to C6-C7 neural foramen bilaterally. SOFT TISSUES: No acute abnormality seen. RAD/Cerv Spine 4 or 5 Views IMPRESSION: 1. No acute osseous abnormality seen. 2. Spondylosis and degenerative disc disease. 3. Straightening of the cervical spine, may reflect muscle spasm. Reading Location: [id number]
== END | disposition home or self-care (01) ==
LOC: MTRAD 11:29
PROVIDERS: PCP Family Medicine; Referring Provider Family Medicine; Visit Provider Family Medicine
DX: M54.2 Cervicalgia (principal)
CPT/HCPCS: 72050

== ENCOUNTER 2025-06-12 09:30 | Outpatient (RCR) | payer BC, SELFPAY ==
--- NOTE | 2025-06-05 09:59 | HP.PTEVAL ---
Patient's Visit Information Visit Information Visit Information: TAMMY MAYO is a 64 year old M referred to Physical Therapy by Dr. Jos Uriostegui MD with a diagnosis of Cervical spine DDD. Date of Evaluation: 06/05/25 Physical Therapist: Rebel Wayne, PT, ATC Visit Plan Frequency: 2x /Week Duration: 2-4 Weeks Plan: DTR to c/s, mobilizations, c/s retractions, and manual traction Subjective Subjective: Pt reports he has had intermittent neck pain for several months. Pt notes his pain had an insidious onset in nature. Pt reports he has good days, and bad days. pt reports he has the most pain when he attempts to look up and down. Pt also notes he has trouble driving at times as he finds it hard looking over both of his shoulders. pt notes he did have x-rays which revealed DDD of the cervical spine. pt denies sleep difficulty at this time secondary to pain. Pt reports he works at [employer]. Pt notes his job requires him to be looking down a lot, which often results in pain throughout his day. Pt reports he has found nothing that really helps to alleviate his pain. Pt reports he is I with all of his normal IADL's and ADL's. Pt reports his neck pain is 2/10 while sitting here at rest, but elevates to 7/10 at worst. Pain Neck pain: Pain Intensity (Out of 10): 3 Pain Intensity Range: 7 Objective Objective: Neuro: B UE sensation is WNL to light touch. Palpation: Pt has significant muscle guarding throughout cervical spine. No obvious deformity noted MMT: B UE's are strong and equal when compared bilaterally ROM: Pt is severely limited with extension, retraction, and B SB. all other motions are minimally limited. Special tests: all negative Repeated movements: Retraction ex's relieve a little pain Balance/Special Test Scores Oswestry Neck Score: 2 Goals Goal 1:: Decrease cervical spine pain x 50% to aid with normal daily activities Goal Time Frame: 2-4 Weeks Goal 2:: Increase cervical spine ROM x 1 grade in all planes to aid with driving Goal Time Frame: 2-4 Weeks Goal 3:: I with HEP Goal Time Frame: 2-4 Weeks Rehabilitation Potential Physical Therapy Diagnosis: Pt has neck pain, limited ROM, and difficulty with driving secondary to C/S DDD Rehabilitation Potential: Good Anticipated Interventions Patient/Client Instruction: Educate patient on: Condition and Plan of Care For the Purpose of:: To improve self management Manual Therapy Techniques to Include: Mobilization and Soft tissue mobilization For the Purpose of:: To decrease pain and To increase ROM Text: Thank you for the opportunity to evaluate your patient. For Medicare and Medicare HMO plans, please review the plan of care and approve it. It will need to be FAXED BACK to us at [phone] for Medicare purposes. For Medicare only, by signing this I certify the plan of care. Please let me know if there are questions or concerns regarding this plan of care. Physician Signature: Date:
--- NOTE | 2025-07-28 11:23 | HP.PT.NRP ---
Patient Information Patient Information: TAMMY MAYO was seen in my office for initial evaluation on 06/05/25. The following Plan of Care was established for this patient: POC Established Initial Frequency: 2x /Week Initial Duration: 2-4 Weeks Anticipated Interventions Patient/Client Instruction: Educate patient on: Condition and Plan of Care For the Purpose of:: To improve self management Manual Therapy Techniques to Include: Mobilization and Soft tissue mobilization For the Purpose of:: To decrease pain and To increase ROM Last Seen Last Seen: This patient was last seen in our office . Pertinent comments regarding their Physical therapy will appear below: Pt has not returned for greater than 30 days and is discontinued at this time. At this point I will be discontinuing this patient from physical therapy. I would be happy to see this patient again in the future if found appropriate by the physician. Thank you! Rebel Wayne, PT, ATC Balance/Gait/Functional tests Balance/Special Test Scores Oswestry Neck Score: 2
== END 2025-06-12 19:00 | disposition home or self-care (01) ==
LOC: PT 09:30
PROVIDERS: PCP Family Medicine; Referring Provider Family Medicine; Visit Provider Family Medicine
DX: M50.30 Other cervical disc degeneration, unspecified cervical region (principal); M62.838 Other muscle spasm
CPT/HCPCS: 97140; 97161

== ENCOUNTER → 2025-06-17 | Outpatient (CLI) | payer BC, SELFPAY ==
--- NOTE | 2025-06-17 08:23 | EKG12_ITS ---
Test Reason : PREOP Blood Pressure : */* mmHG Vent. Rate : 49 BPM Atrial Rate : 49 BPM P-R Int : 152 ms QRS Dur : 96 ms QT Int : 424 ms P-R-T Axes : -1 39 50 degrees QTcB Int : 383 ms Marked sinus bradycardia Abnormal ECG Confirmed by RENZO CROWDER ([id number]), society editor LIANE HUIZAR ([id number]) on 06/17/2025 1:48:17 PM Referred By: Artis Smith Confirmed By: RENZO CROWDER
--- NOTE | 2025-06-17 08:35 | CT_ITS ---
PROCEDURE: EXTREMITY LOWER WITHOUT CONTRA 06/17/2025 REASON FOR EXAM: EFFUSION RIGHT KNEE TECHNIQUE: EXTREMITY LOWER WITHOUT CONTRA Coronal and Sagittal reconstruction series were provided. CONTRAST: None One or more dose reduction techniques were used (e.g., Automated exposure control, adjustment of the mA and/or kV according to patient size, use of iterative reconstruction technique). RADIATION DOSE SUMMARY: DLP: 1396 mGycm COMPARISON: None FINDINGS: There is a 1.0 x 0.5 cm bone island in the posterior lateral femoral condyle. There is moderate tricompartment osteoarthritis, most severe in the medial compartment. Marginal osteophytes are noted. There is a trace joint effusion. There is no fracture or dislocation. There is no visible loose body. Adjacent soft tissues are unremarkable. Vascular calcifications are noted. CT/Extremity Lower without Contra IMPRESSION: There is moderate tricompartment osteoarthritis, most severe in the medial comp artment. Reading Location: [facility]
[2025-06-17 09:18] LABS: Hematocrit 43.0 % (40-54); Hemoglobin 14.8 g/dL (13.0-16.5); Immature Granulocytes Count 0.040 X10^3/uL (0.0-0.0); Mean Corp Hgb Conc 34.4 g/dL (32-36); Mean Corpuscular Volume 85.7 fL (80-94); Mean Platelet Vol. 10.0 fl (6.2-12.0); NRBC Flagged by Analyzer 0 % (0-5); Platelet Count 179 K/mm3 (150-450); RBC Distribution Width CV 12.9 % (11.6-14.6); RBC Distribution Width SD 40.2 fl (35.1-43.9); Red Blood Count 5.02 M/mm3 (4.6-6.2); White Blood Count 7.3 K/mm3 (4.4-11.0)
[2025-06-17 10:29] LABS: Albumin, Serum 4.2 g/dL (3.4-4.8); Anion Gap 9 (5-15); BUN 21 mg/dL (4-19); BUN/Creat Ratio 21.3 RATIO (10-20); Calcium,Total 9.3 mg/dL (7.6-11.0); Carbon Dioxide 24.6 mmol/L (21.0-32.0); Chloride 107 mmol/L (98-108); Glucose 111 mg/dL (70-99); Potassium 4.6 mmol/L (3.3-5.1)
== END | disposition home or self-care (01) ==
PROVIDERS: PCP Family Medicine; Referring Provider Specialist; Visit Provider Specialist
DX: Z01.810 Encounter for preprocedural cardiovascular examination (principal); M17.31 Unilateral post-traumatic osteoarthritis, right knee; S83.8X1D Sprain of other specified parts of right knee, subsequent encounter; X58.XXXD Exposure to other specified factors, subsequent encounter
CPT/HCPCS: 36415; 73700; 80048; 82040; 85025; 93005

== ENCOUNTER → 2025-07-30 | Outpatient (CLI) | payer BC, SELFPAY ==
--- NOTE | 2025-07-30 12:48 | VDLE_ITS ---
Reason For Study Reason For Study: RLE Pain Post Op RIGHT LEFT GSV is normal. FV is compressible, spontaneous, phasic, competent CFV is compressible, spontaneous, phasic, competent and demonstrates normal augmentation. and demonstrates normal augmentation. FV is compressible, spontaneous, phasic, competent and demonstrates normal augmentation. POP V is compressible, spontaneous, and phasic. T/P Trunk is compressible. Acute deep vein thrombosis is noted in the Gastrocnemius V. It is dilated and NONCOMPRESSIBLE. PTV is compressible. RT PerV is compressible. Procedure This is a venous duplex using B-mode, color flow and spectral Doppler. Exam performed in department. The exam was diagnostic. A preliminary report was called and/or faxed to Gwen Ram RN @ [facility]. VL/Venous Duplex US, Unilateral Interpretation Summary Acute deep vein thrombosis is noted in the right gastrocnemius vein. The remain andrei of the right lower extremity deep venous system is patent and compressible. Valvular competence appears intact wi thin the proximal deep venous system on the right . The right great saphenous vein appears patent and compressible segm entally. The left femoral vein is patent and compressible. Ordering Physician: Dave Nevarez Referring Physician: Jos Uriostegui Performed By: Yang Hernandez RVT
== END | disposition home or self-care (01) ==
LOC: CVS 12:44
PROVIDERS: PCP Family Medicine; Referring Provider Physician Assistant Surgical; Visit Provider Physician Assistant Surgical
DX: R22.41 Localized swelling, mass and lump, right lower limb (principal); Z96.651 Presence of right artificial knee joint
CPT/HCPCS: 93971

== ENCOUNTER 2025-09-15 10:30 | Outpatient (RCR) | payer BC, SELFPAY ==
--- NOTE | 2025-07-20 11:24 | HP.PTEVAL_ITS ---
Patient's Visit Information Visit Information Visit Information: TAMMY MAYO is a 64 year old M referred to Physical Therapy by Crispin Nevarez PA-C with a diagnosis of R TKA 07/16/25. Date of Evaluation: 07/20/25 Physical Therapist: Rebel Wayne, PT, ATC Visit Plan Frequency: 2-3x /Week Duration: 6-8 weeks Plan: R knee PROM and mobs, stretching and strengthening, balance and proprio, core strengthening, and HEP. CP for pain. Subjective Subjective: DOS: 07/16/25. Pt had a R TKA performed at that time. Pt notes he was in a lot of pain for several months prior to this surgery. Pt reports he was able to get by with a cortisone injection for a few months, but the pain was too much. Pt reports he is now retired. Pt did not use an AD prior to surgery. Pt reports he had a very difficult time with negotiating stairs prior to his surgery. pt notes he likes to travel and go on hikes, which he hopes to get back to soon. Pt reports sleep difficulty at this time secondary to pain. Pt denies any tingling or numbness at his time. Pt reports pain meds and icing helps to control his pain at this time. Pt reports R knee pain is 3/10 at this time, increases to 10/10 at worst. Pain R knee pain: Pain Intensity (Out of 10): 3 Pain Intensity Range: 10 Objective Objective: Neuro: B LE sensation is WNL to light touch TU sec Observation: Moderate swelling noted this date. No obvious signs of infection at this time. Wound still covered by nitrate patch. MMT: L knee flex= 53, ext= 49; R knee flex= 16, ext= 10 #F ROM: L knee 0-125 degrees ; R knee 0-15-105 degrees Balance/Special Test Scores WOMAC Total Score: 71 WOMAC Percentatge: 26.0500 Goals Goal 1:: Decrease R knee pain x 50% to aid with sleep Goal Time Frame: 6-8 Weeks Goal 2:: Increase R knee ROM x 20 degrees to aid with restoring a more normalize d gait pattern. Goal Time Frame: 6-8 Weeks Goal 3:: Increase R knee strength to equal 90% of L knee pain to aid with stair negotiation Goal Time Frame: 6-8 Weeks Goal 4:: I with HEP Goal Time Frame: 4-6 Weeks Rehabilitation Potential Physical Therapy Diagnosis: Pt has R knee pain, weakness, and limited ROM secondary to R TKA Rehabilitation Potential: Good Anticipated Interventions Patient/Client Instruction: Educate patient on: Condition For the Purpose of:: To improve self management Therapeutic Exercise to Include: Strength training, Endurance training, Balance training, Flexibilty training, Gait and locomotor training, Passive ROM, Active ROM and Dynamic Lumbar Stabilization For the Purpose of:: To decrease pain, To increase ROM and To improve muscle performance and motor function Cryotherapy (ice pack, ice massage): Yes For the Purpose of:: To decrease pain Text: Thank you for the opportunity to evaluate your patient. For Medicare and Medicare HMO plans, please review the plan of care and approve it. It will need to be FAXED BACK to us at [phone] for Medicare purposes. For Medicare only, by signing this I certify the plan of care. Please let me know if there are questions or concerns regarding this plan of care. Physician Signature: Date:
--- NOTE | 2025-09-15 10:57 | HP.PTDCSUM ---
Discharge Summary D/C summary: It has been my pleasure to treat TAMMY MAYO referred by Crispin Nevarez PA-C, with the diagnosis of R TKA 07/16/25 for a total of 20 visit(s). Discharge Date: Please see the following information for a summary of their discharge status. Subjective Subjective: I feel great today. I am ready to be done. Pain R knee pain: Pain Intensity (Out of 10): 1 Overall Improvement % Improvement: 100 Objective Objective/Function: R knee pain ranges from 1-2/10 R knee ROM 0-5-125 degrees R knee MMT: flex= 21, ext= 39 #F Pt has achieved all Rx goals Goals Goal 1:: Decrease R knee pain x 50% to aid with sleep Goal Progress: Goal Met Goal 2:: Increase R knee ROM x 20 degrees to aid with restoring a more normalized gait pattern. Goal Progress: Goal Met Goal 3:: Increase R knee strength to equal 90% of L knee pain to aid with stair negotiation Goal Progress: Goal Met Goal 4:: I with HEP Goal Progress: Goal Met Plan Plan: Discharge to HEP D/C Information d/c sentence: If there are questions or concerns regarding this patient's physical therapy, please feel free to call me at [phone]. Thank you for the referral of this patient. Sincerely, Rebel Wayne, PT, ATC Balance/Gait/Functional tests Balance/Special Test Scores WOMAC Total Score: 27 WOMAC Percentage: 71.8800 Improvement % Improvement: 100
== END 2025-09-15 12:31 | disposition home or self-care (01) ==
LOC: PT 10:30
PROVIDERS: PCP Family Medicine; Visit Provider Physician Assistant Surgical
DX: Z96.651 Presence of right artificial knee joint (principal); Z47.1 Aftercare following joint replacement surgery
CPT/HCPCS: 97110; 97140; 97161; 97530